=== PATIENT | female | born 1990 ===

== ENCOUNTER 2018-07-07 14:00 | Emergency (ER) | payer BC ==
[2018-07-07 14:53] LABS: Urine Blood TRACE (NEG); Urine Glucose NEGATIVE (NEG); Urine Protein NEGATIVE (NEG); Urine Specific Gravity 1.025 (1.005-1.030); Urine pH 5.5 (5.0-7.0)
--- NOTE | 2018-07-07 15:16 | ER ---
Nurse's Notes [facility] Name: Jessica Block Age: 27 yrs Sex: Female : 1990 Arrival Date: 07/07/2018 Time: 14:01 Bed 13 Private MD: Diagnosis: Migraine Presentation: 07/07 14:08 Presenting complaint: Patient states: I have a hx of migraines but have not had one for la1 a few months. I woke up and my head was hurting and now I have been vomiting, I took a med I am prescribed that ends in triptan but its not helping. Transition of care: patient was not received from another setting of care. Onset of symptoms was July 07, 2018. Risk Assessment: Do you want to hurt yourself or someone else? Patient reports no desire to harm self or others. Initial Sepsis Screen: Does the patient meet any 2 criteria? No. Patient's initial sepsis screen is negative. Does the patient have a suspected source of infection? No. Patient's initial sepsis screen is negative. Care prior to arrival: None. 14:08 Method Of Arrival: Ambulatory la1 14:08 Acuity: KEVYN 3 la1 Triage Assessment: 14:32 Headache History: The patient has had previous headaches. General: Appears in no hj apparent distress. uncomfortable, Behavior is calm, cooperative, appropriate for age. Pain: Complains of pain in right base of the skull and left base of the skull Pain currently is 7 out of 10 on a pain scale. Pain began 4 hours ago. Also complains of. Neuro: Level of Consciousness is awake, alert, obeys commands, Oriented to person, place, time, situation, Appropriate for age. 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 - Social history:: Smoking status: Patient/guardian denies using tobacco. - Ebola Screening: : No symptoms or risks identified at this time. Screenin:32 Abuse screen: Denies threats or abuse. Denies injuries from another. Nutritional hj screening: No deficits noted. Tuberculosis screening: No symptoms or risk factors identified. Fall Risk None identified. Assessment: 14:34 General: Appears in no apparent distress. uncomfortable. Pain: Complains of pain in hj head. Neuro: Level of Consciousness is awake, alert, obeys commands, Oriented to person, place, time, situation, Appropriate for age. Cardiovascular: Capillary refill < 3 seconds Patient's skin is warm and dry. Respiratory: Airway is patent Respiratory effort is even, unlabored, Respiratory pattern is regular, symmetrical. GI: Abdomen is non-distended. : No signs and/or symptoms were reported regarding the genitourinary system. EENT: No signs and/or symptoms were reported regarding the EENT system. Derm: No signs and/or symptoms reported regarding the dermatologic system. Musculoskeletal: No signs and/or symptoms reported regarding the musculoskeletal system. Vital Signs: 14:10 BP 106 / 60; Pulse 84; Resp 16; Temp 97.3; Pulse Ox 98% on R/A; Weight 61.23 kg; Height la1 5 ft. 4 in. (162.56 cm); 15:12 BP 108 / 65; Pulse 85; Resp 18; Pulse Ox 100% on R/A; hj 14:10 Body Mass Index 23.17 (61.23 kg, 162.56 cm) la1 ED Course: 14:01 Patient arrived in ED. tw3 14:09 Triage completed. la1 14:10 Arm band placed on right wrist. la1 14:11 Gage Kruger PA is PHCP. jr8 14:11 Ken Lara MD is Attending Physician. jr8 14:13 Vikash Padilla, QUYEN is Primary Nurse. hj 14:32 Inserted saline lock: 20 gauge in left antecubital area, using aseptic technique. hj 14:33 Patient has correct armband on for positive identification. Placed in gown. Bed in low hj position. Call light in reach. Side rails up X 1. Adult w/ patient. 15:26 No provider procedures requiring assistance completed. IV discontinued, intact, hj bleeding controlled, No redness/swelling at site. Pressure dressing applied. Administered Medications: 14:25 Drug: NS 0.9% 1000 ml Route: IV; Rate: 1000 ml; Site: left antecubital; hj 15:15 Follow up: IV Status: Completed infusion; IV Intake: 1000ml hj 14:25 Drug: Reglan 10 mg Route: IVP; Site: left antecubital; hj 14:56 Follow up: Response: No adverse reaction hj 14:25 Drug: Benadryl 25 mg Route: IVP; Site: left antecubital; hj 14:55 Follow up: Response: No adverse reaction hj 14:26 Drug: TORadol 30 mg Route: IVP; Site: left antecubital; hj 14:55 Follow up: Response: No adverse reaction; Pain is decreased hj Intake: 15:15 IV: 1000ml; Total: 1000ml. Outcome: 15:14 Discharge ordered by MD. springer 15:26 Discharged to home ambulatory, with family. 15:26 Condition: stable 15:26 Discharge instructions given to patient, family, Instructed on discharge instructions, follow up and referral plans. Demonstrated understanding of instructions, follow-up care. 15:27 Patient left the ED. Signatures: Gage Kruger PA PA jr8 Suman Velarde RN RN la1 Vikash Padilla RN RN Summer Gonzalez tw3
--- NOTE | 2018-07-07 15:16 | EDPHYS ---
Physician Documentation [facility] Name: Jessica Block Age: 27 yrs Sex: Female : 1990 Arrival Date: 07/07/2018 Time: 14:01 Bed 13 Private MD: ED Physician Ken Lara HPI: 07/07 14:22 This 27 yrs old Female presents to ER via Ambulatory with complaints of Headache, jr8 Nausea and vomiting. 14:22 The patient complains of pain to the left base of the skull and right base of the jr8 skull. The patient describes the headache as constant, a pressure. Onset: The symptoms/episode began/occurred acutely, today. Associated signs and symptoms: Pertinent positives: vomiting. Severity of symptoms: At its worst the pain was moderate, in the emergency department the pain is unchanged. Headache History: The patient has had previous headaches and this one is similar to previous episodes, and this one is more severe than previous episodes. The patient has experienced similar episodes in the past, a few times. The patient has been recently seen by a physician: the patient's primary care provider, with different complaint(s). Patient recently diagnosed with strep throat and is on antibiotics. Stated that she has had dull headache since then but now has turned into migraine that she cannot get rid of. Denies any other symptoms . 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 - Social history:: Smoking status: Patient/guardian denies using tobacco. - Ebola Screening: : No symptoms or risks identified at this time. ROS: 14:22 Eyes: Negative for injury, pain, redness, and discharge, ENT: Negative for injury, jr8 pain, and discharge, Neck: Negative for injury, pain, and swelling, Cardiovascular: Negative for chest pain, palpitations, and edema, Respiratory: Negative for shortness of breath, cough, wheezing, and pleuritic chest pain, Back: Negative for injury and pain, MS/Extremity: Negative for injury and deformity, Skin: Negative for injury, rash, and discoloration. 14:22 Abdomen/GI: Positive for nausea and vomiting, Negative for abdominal pain, diarrhea, constipation, abdominal cramps, abdominal distension, anorexia, dysphagia, hematemesis, black/tarry stool, rectal pain, rectal bleeding, bowel incontinence, flatulence. 14:22 Neuro: Positive for headache, Negative for altered mental status, dizziness, gait disturbance, hearing loss, loss of consciousness, numbness, seizure activity, speech changes, syncope, near syncope, tingling, tinnitus, tremor, visual changes, weakness. Exam: 14:30 Eyes: Pupils equal round and reactive to light, extra-ocular motions intact. Lids and jr8 lashes normal. Conjunctiva and sclera are non-icteric and not injected. Cornea within normal limits. Periorbital areas with no swelling, redness, or edema. ENT: Nares patent. No nasal discharge, no septal abnormalities noted. Tympanic membranes are normal and external auditory canals are clear. Oropharynx with no redness, swelling, or masses, exudates, or evidence of obstruction, uvula midline. Mucous membranes moist. Neck: Trachea midline, no thyromegaly or masses palpated, and no cervical lymphadenopathy. Supple, full range of motion without nuchal rigidity, or vertebral point tenderness. No Meningismus. Cardiovascular: Regular rate and rhythm with a normal S1 and S2. No gallops, murmurs, or rubs. Normal PMI, no JVD. No pulse deficits. Respiratory: Lungs have equal breath sounds bilaterally, clear to auscultation and percussion. No rales, rhonchi or wheezes noted. No increased work of breathing, no retractions or nasal flaring. Abdomen/GI: Soft, non-tender, with normal bowel sounds. No distension or tympany. No guarding or rebound. No evidence of tenderness throughout. Back: No spinal tenderness. No costovertebral tenderness. Full range of motion. Skin: Warm, dry with normal turgor. Normal color with no rashes, no lesions, and no evidence of cellulitis. MS/ Extremity: Pulses equal, no cyanosis. Neurovascular intact. Full, normal range of motion. Neuro: Awake and alert, GCS 15, oriented to person, place, time, and situation. Cranial nerves II-XII grossly intact. Motor strength 5/5 in all extremities. Sensory grossly intact. Cerebellar exam normal. Normal gait. Vital Signs: 14:10 BP 106 / 60; Pulse 84; Resp 16; Temp 97.3; Pulse Ox 98% on R/A; Weight 61.23 kg; Height la1 5 ft. 4 in. (162.56 cm); 15:12 BP 108 / 65; Pulse 85; Resp 18; Pulse Ox 100% on R/A; hj 14:10 Body Mass Index 23.17 (61.23 kg, 162.56 cm) la1 MDM: 14:11 Patient medically screened. jr8 15:14 Data reviewed: vital signs, nurses notes, and as a result, I will discharge patient. jr8 Data interpreted: Pulse oximetry: on room air is 100 %. Interpretation: normal. Counseling: I had a detailed discussion with the patient and/or guardian regarding: the historical points, exam findings, and any diagnostic results supporting the discharge/admit diagnosis, the need for outpatient follow up, a family practitioner, to return to the emergency department if symptoms worsen or persist or if there are any questions or concerns that arise at home. Response to treatment: the patient's symptoms have resolved after treatment, patient is well hydrated. 07/07 14:38 Order name: Urine Dipstick--Ancillary (enter results); Complete Time: 14:55 eb 07/07 14:38 Order name: Urine --Ancillary (enter results); Complete Time: 14:55 eb 07/07 14:12 Order name: IV; Complete Time: 14:25 jr8 Administered Medications: 14:25 Drug: NS 0.9% 1000 ml Route: IV; Rate: 1000 ml; Site: left antecubital; hj 15:15 Follow up: IV Status: Completed infusion; IV Intake: 1000ml hj 14:25 Drug: Reglan 10 mg Route: IVP; Site: left antecubital; hj 14:56 Follow up: Response: No adverse reaction hj 14:25 Drug: Benadryl 25 mg Route: IVP; Site: left antecubital; hj 14:55 Follow up: Response: No adverse reaction hj 14:26 Drug: TORadol 30 mg Route: IVP; Site: left antecubital; hj 14:55 Follow up: Response: No adverse reaction; Pain is decreased hj Disposition: 07/08 10:13 Co-signature as Attending Physician, Ken Lara MD. Disposition: 07/07/18 15:14 Discharged to Home. Impression: Migraine. - Condition is Stable. - Discharge Instructions: Migraine Headache. - Medication Reconciliation Form, Thank You Letter, Antibiotic Education, Prescription Opioid Use form. - Follow up: Private Physician; When: 2 - 3 days; Reason: Recheck today's complaints, Continuance of care, Re-evaluation by your physician. - Problem is new. - Symptoms are resolved. Signatures: Dispatcher [employer] EDMS Gage Kruger PA PA jr8 Suman Velarde RN RN la1 Vikash Padilla RN RN Ken Cross MD MD gs Corrections: (The following items were deleted from the chart) 07/07 15:27 15:14 07/07/2018 15:14 Discharged to Home. Impression: Migraine. Condition is Stable. hj Forms are Medication Reconciliation Form, Thank You Letter, Antibiotic Education, Prescription Opioid Use. Follow up: Private Physician; When: 2 - 3 days; Reason: Recheck today's complaints, Continuance of care, Re-evaluation by your physician. Problem is new. Symptoms are resolved. jr8
== END 2018-07-07 15:27 | disposition home or self-care (01) ==
LOC: ER 14:00
DX: G43.909 Migraine, unspecified, not intractable, without status migrainosus (principal)
CPT/HCPCS: 81003; 81025; 96361; 96374; 96375; 99283